=== PATIENT | female | born 1950 | race Caucasian/White ===

== ENCOUNTER 2022-08-18 13:35 | Emergency (ER) | payer MEDICARE, BC ==
[~2022-08-18] VITALS: Ht 152.4 cm; Wt 50.8 kg
--- NOTE | 2022-08-18 13:55 | NUR ---
PINO RA70 and family from a private residence post [facility] fall. Pt states she tripped on the curb and fell with no LOC. Pt to room 4A via EMS Dr.Nabel shamar saw and examined the pt.
--- NOTE | 2022-08-18 17:39 | NUR ---
Patient discharged to home in stable condition with family. Written and verbal after care instructions given. Patient and family verbalized understanding of instructions. Stressed follow up or return to ER for worsening s/s.
== END 2022-08-18 17:40 | disposition home or self-care (01) ==
LOC: ER 13:35
DX: S62.617A Displaced fracture of proximal phalanx of left little finger, initial encounter for closed fracture (principal); W01.0XXA Fall on same level from slipping, tripping and stumbling without subsequent striking against object, initial encounter; Y92.480 Sidewalk as the place of occurrence of the external cause; K50.90 Crohn's disease, unspecified, without complications; Z88.0 Allergy status to penicillin; Z88.6 Allergy status to analgesic agent; Z91.040 Latex allergy status; R04.0 Epistaxis
CPT/HCPCS: 70450; 70486; 71045; 72125; 73130; 73610; A4663